=== PATIENT | female | born 1985 | race African-American/Black ===

== ENCOUNTER 2018-05-30 08:05 | Emergency (ER) | payer MEDICAID ==
[~2018-05-30] VITALS: Ht 152.4 cm; Wt 125.0 kg
[2018-05-30] MEDS ORDERED: ACETAMINOPHEN 325MG TABLET PO PRN (12:15)
[2018-05-30 12:44] LABS: BASOPHILS % 0.8 % (0.0-2.0); EOSINOPHILS % 2.9 % (0.0-5.0); HEMOGLOBIN. 10.2 g/dL (12.0-16.0); LYMPHOCYTES % 31.8 % (20.0-50.0); MEAN CORPUSCULAR HEMOGLOBIN 21.2 pg (28.0-32.0); MEAN CORPUSCULAR VOLUME 68.5 fL (81.0-99.0); MEAN PLATELET VOLUME 8.9 fl (7.4-10.4); MONOCYTES % 7.8 % (2.0-8.0); NEUTROPHILS % 56.7 % (40.0-76.0); PLATELET 179 x1000/uL (130-400); RED BLOOD CELL COUNT 4.82 mill/uL (4.2-5.4); RED CELL DISTRIBUTION WIDTH 16.9 % (11.6-14.6)
[2018-05-30 12:59] LABS: CHLORIDE 107 mEq/L (98-107)
[2018-05-30 13:10] LABS: B-HCG QUANTITATIVE < 1 mIU/mL (<3)
[2018-05-30 13:38] LABS: PLATELET ESTIMATE NORMAL
[2018-05-30 14:16] VITALS: BP 163/77
[2018-05-30 15:46] LABS: HCG SCREEN NEGATIVE
== END 2018-05-30 14:54 | disposition home or self-care (01) ==
LOC: ER 08:05
DX: R10.0 Acute abdomen (principal); Z32.02 Encounter for pregnancy test, result negative; N83.8 Other noninflammatory disorders of ovary, fallopian tube and broad ligament; I10 Essential (primary) hypertension; Z98.51 Tubal ligation status
CPT/HCPCS: 36415; 76830; 76856; 81025; 84702; 84703; 86850; 86900; 99284